=== PATIENT | male | born 1960 | race Caucasian/White ===

== ENCOUNTER 2020-08-20 21:24 | Emergency (ER) | payer MEDICARE, OTHER ==
[~2020-08-20] VITALS: Ht 170.2 cm; Wt 54.4 kg
[2020-08-20 21:41] VITALS: BP 117/80
--- NOTE | 2020-08-20 21:41 | NUR ---
ED Nurse Note: PT AMBULATED INTO ED FROM HOME CO GENERALIZED BODY PAIN D/T CURRENTLY DETOXING FROM [facility]. PT STATES PAIN IS 8/10. PT AAO X 4, AMBULATES WITH STEADY GAIT, NO ANXIETY NOTED. AWAITING ERMD AT BEDSIDE. AWAITING FURTHER ORDERS.
[2020-08-20] MEDS ORDERED: LORazepam Inj 2mg/ml 1ml IV ONE (22:00)
--- NOTE | 2020-08-20 22:00 | Emergency Room Report ---
History of Present Illness General Chief Complaint: Pain Source: Patient Present Illness HPI Disclaimer: Please note that this report is being documented using DRAGON technology. This can lead to erroneous entry secondary to incorrect interpretation by the dictating instrument. HPI: 59-year-old male history of heroin abuse presents for evaluation of tremors and restlessness. Patient states he completed inpatient detox program 3 days ago and transition to residential detox at [facility]. Unable to sleep over the past 3 days. He was receiving Valium and Klonopin and detox but was not given prescriptions. He feels restlessness, tremors in his extremities. Denies seizures. Denies chest pain or palpitations specifically but states he feels agitated from "withdrawal." Reports baseline cough that is unchanged. This is due to his smoking per patient. Denies fever, chills, nausea, vomiting, diarrhea, abdominal pain, skin rash. Denies other medical conditions or complaints at this time. He presents with care worker from [facility]. 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 EOMI. Cardiovascular: RRR. S1 and S2 normal. No murmur appreciated Resp: Normal work of breathing. No cough, wheezing or crackles appreciated Abdomen: Abdomen is soft, nondistended. Nontender Skin: Intact. No abrasions, laceration or rash over the exposed skin MSK: Normal tone and bulk. Moving all extremities. No obvious deformity. Neuro: Awake and alert. Mentating appropriately. No tremors. Purposeful movem ents. Medical Decision Making Diagnostic Impression: Primary Impression: Benzodiazepine withdrawal without complication ER Course Is a 59-year-old male presenting for evaluation of agitation and tremulousness. Differential includes was not limited to benzodiazepine withdrawal, heroin withdrawal, anxiety, depression, electrolyte abnormality, arrhythmia, ACS among others. EKG is nonischemic and has a normal rhythm. Patient has no signs of acute withdrawal. Labs within normal limits. Patient was unable to provide urine stating he urinated just prior to arriving to the ED. Likely anxiety and mild benzodiazepine withdrawal. Will give short course of as needed Ativan to use as night to help him sleep over the next few days. Follow-up with the remainder of his care through his outpatient rehabilitation program. Assistant Athletic Trainer is here to take him back to his facility. Instructed to return with new or worsening symptoms. He understands and agrees with this treatment plan. Laboratory Tests Test 08/20/20 22:05 White Blood Count 10.6 K/UL (4.8-10.8) Red Blood Count 4.38 M/UL (4.70-6.10) L Hemoglobin 13.1 G/DL (14.2-18.0) L Hematocrit 40.1 % (42.0-52.0) L Mean Corpuscular Volume 92 FL (80-99) Mean Corpuscular Hemoglobin 29.9 PG (27.0-31.0) Mean Corpuscular Hemoglobin Concent 32.6 G/DL (32.0-36.0) Red Cell Distribution Width 16.4 % (11.6-14.8) H Platelet Count 322 K/UL (150-450) Mean Platelet Volume 6.3 FL (6.5-10.1) L Neutrophils (%) (Auto) 62.0 % (45.0-75.0) Lymphocytes (%) (Auto) 30.5 % (20.0-45.0) Monocytes (%) (Auto) 5.1 % (1.0-10.0) Eosinophils (%) (Auto) 0.9 % (0.0-3.0) Basophils (%) (Auto) 1.5 % (0.0-2.0) Sodium Level 133 MMOL/L (136-145) L Potassium Level 4.3 MMOL/L (3.5-5.1) Chloride Level 104 MMOL/L (98-107) Carbon Dioxide Level 21 MMOL/L (21-32) Anion Gap 8 mmol/L (5-15) Blood Urea Nitrogen 32 mg/dL (7-18) H Creatinine 1.2 MG/DL (0.55-1.30) Estimated Glomerular Filtration Rate > 60 mL/min (>60) Glucose Level 115 MG/DL (74-106) H Calcium Level 10.5 MG/DL (8.5-10.1) H Total Bilirubin 0.3 MG/DL (0.2-1.0) Aspartate Amino Transferase (AST) 26 U/L (15-37) Alanine Aminotransferase (ALT) 20 U/L (12-78) Alkaline Phosphatase 163 U/L (46-116) H Troponin I 0.000 ng/mL (0.000-0.056) Total Protein 8.9 G/DL (6.4-8.2) H Albumin 3.6 G/DL (3.4-5.0) Globulin 5.3 g/dL Albumin/Globulin Ratio 0.7 (1.0-2.7) L Serum Alcohol < 3 mg/dL EKG Diagnostic Results Troponin ordered: Yes When was troponin ordered?: Aug 20, 2020 EKG Time: 22:04 Rate: normal Rhythm: NSR ST Segments: no acute changes Other Impression Sinus rhythm, normal axis, normal intervals, QTC 4 1 5 ms, no ST segment changes. Rhythm Strip Diag. Results Rhythm Strip Time: 22:04 EP Interpretation: yes Rate: 63 Rhythm: NSR, no PVC's, no ectopy Chest X-Ray Diagnostic Results Chest X-Ray Diagnostic Results : Chest X-Ray Ordered: Yes # of Views/Limited/Complete: 1 View Indication: Chest Pain EP Interpretation: Yes Interpretation: no consolidation, no effusion, no pneumothorax, no acute cardiopulmonary disease Impression: No acute disease Electronically Signed by: Electronically signed by Dr. Lexx Phillip MD Last Vital Signs Date Time Temp Pulse Resp B/P (MAP) Pulse Ox O2 Delivery O2 Flow Rate FiO2 08/20/20 21:31 98.4 71 18 117/80 (92) 95 Room Air Disposition: ASSISTED LIVING Condition: Stable Scripts Lorazepam* (ATIVAN*) 1 Mg Tablet 1 MG ORAL BEDTIME PRN for Agitation, #3 TAB Prov: Lexx Phillip MD 08/20/20 Lexx Phillip MD Aug 20, 2020 22:00
--- NOTE | 2020-08-20 22:00 | NUR ---
ED Nurse Note: ALL BLOOD WORK OBTAINED AND SENT TO LAB. PT STATES HE IS UNABLE TO PROVIDE UA AT THIS TIME.
--- NOTE | 2020-08-20 22:15 | NUR ---
ED Nurse Note: ALL MEDICATIONS ADMINISTERED, PT TOLERATED WELL NO SS OF DISTRESS NOTED. WILL CONTINUE TO MONITOR.
[2020-08-20 22:22] LABS: BASOPHILS % (AUTO) 1.5 % (0.0-2.0); EOSINOPHILS % (AUTO) 0.9 % (0.0-3.0); HEMATOCRIT 40.1 % (42.0-52.0); HEMOGLOBIN 13.1 G/DL (14.2-18.0); LYMPHOCYTES % (AUTO) 30.5 % (20.0-45.0); MEAN CORPUSCULAR VOLUME 92 FL (80-99); MONOCYTES % (AUTO) 5.1 % (1.0-10.0); PLATELET COUNT 322 K/UL (150-450); RED BLOOD COUNT 4.38 M/UL (4.70-6.10); RED CELL DISTRIBUTION WIDTH 16.4 % (11.6-14.8); WHITE BLOOD COUNT 10.6 K/UL (4.8-10.8)
[2020-08-20 22:34] LABS: ANION GAP 8 mmol/L (5-15); BLOOD UREA NITROGEN 32 mg/dL (7-18); CALCIUM 10.5 MG/DL (8.5-10.1); CARBON DIOXIDE 21 MMOL/L (21-32); CHLORIDE 104 MMOL/L (98-107); CREATININE 1.2 MG/DL (0.55-1.30); POTASSIUM 4.3 MMOL/L (3.5-5.1); SODIUM 133 MMOL/L (136-145)
[2020-08-20 22:39] LABS: ALANINE AMINOTRANSFERASE 20 U/L (12-78); ALBUMIN 3.6 G/DL (3.4-5.0); ALBUMIN/GLOBULIN RATIO 0.7 (1.0-2.7); ALKALINE PHOSPHATASE 163 U/L (46-116); ASPARTATE AMINO TRANSFERASE 26 U/L (15-37); BILIRUBIN,TOTAL 0.3 MG/DL (0.2-1.0)
--- NOTE | 2020-08-20 22:49 | NUR ---
ED Nurse Note: Pt prompted for second time for UA, pt states that he still cannot provide UA at this time. ERMD notified.
[2020-08-20] MEDS ORDERED: ATIVAN1 MG ORAL (22:53)
[2020-08-20 22:57] VITALS: BP 125/83
--- NOTE | 2020-08-20 22:57 | NUR ---
ER DISCHARGE NOTE: Patient is cleared to be discharged HOME per ERMD, pt is aox4, 98% on room air, with stable vital signs. pt was given dc and prescription instructions, pt was able to verbalize understanding, pt id band removed without complications. pt is able to ambulate with steady gait. pt took all belongings.
--- NOTE | 2020-08-21 15:25 | Cardiology Report ---
APPROVED REPORT EKG Measurement Heart [id number] <Conclusion> Normal sinus rhythm Normal ECG
--- NOTE | 2020-08-21 16:39 | Diagnostic Imaging Report ---
Indication: Chest pain Technique: XRAY Chest 1v Comparison: None Findings: Hyperinflation and slight flattening of the diaphragms. No focal consolidation. No pleural effusion or pneumothorax. Heart size is within normal limits. No acute osseous abnormality. Impression: No radiographic evidence of acute cardiopulmonary disease. Suggested subtle COPD changes.
== END 2020-08-20 22:57 | disposition home or self-care (01) ==
LOC: EMR 22:08
DX: F19.239 Other psychoactive substance dependence with withdrawal, unspecified (principal); F11.11 Opioid abuse, in remission
CPT/HCPCS: 36415; 71045; 80053; 84484; 85025; 93005; 99283; G0480

== ENCOUNTER 2020-08-21 08:23 | Emergency (ER) | payer MEDICARE, OTHER ==
[~2020-08-21] VITALS: Ht 170.2 cm; Wt 54.4 kg
[~2020-08-21 08:23] MED LIST: ATIVAN1 MG ORAL
[2020-08-21 08:27] VITALS: BP 115/80
--- NOTE | 2020-08-21 08:37 | NUR ---
ED Nurse Note: Patient came in for re evaluation of benzodiazepine withdrawal. Pt reports that he was seen here yesterday and was prescribed with ativan but has not been filled yet. Pt is c/o generalized body pain. AAO x4, follows commands. No respiratory distress.
--- NOTE | 2020-08-21 08:42 | Emergency Room Report ---
History of Present Illness General Chief Complaint: Substance Abuse Source: Patient Present Illness HPI 59-year-old male here for benzodiazepine withdrawal. The patient takes Klonopin and Valium regularly. Patient was here last night for the same complaints. Patient says he has gone without his benzos for a few days and is beginning to feel "agitated." He was here last night and had an extensive work-up including chest x-ray and lab work that was all unremarkable. He was given a prescription for Ativan. However he has been unable to fill it. He is here "because I need a dose." Denies headache, vision change, fevers, chills, chest pain, palpitation, shortness of breath, back pain, abdominal pain, nausea vomiting, diarrhea, dysuria. 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 COVID-19 Screening: Negative COVID-19 COVID-19 Testing Source: [facility] Nursing Documentation-[facility] Past Medical History: No History, Except For History Of Psychiatric Problem: Yes - substance abuse Review of Systems All Other Systems: negative except mentioned in HPI Physical Exam Vital Signs Date Time Temp Pulse Resp B/P (MAP) Pulse Ox O2 Delivery O2 Flow Rate FiO2 08/21/20 08:27 97.9 78 20 115/80 (92) 99 08/21/20 08:27 Room Air Sp02 EP Interpretation: reviewed, normal General Appearance: no apparent distress, alert, non-toxic Head: normocephalic, atraumatic Eyes: bilateral eye normal inspection, bilateral eye PERRL ENT: hearing grossly normal, normal pharynx, no angioedema, normal voice Neck: full range of motion, supple/symm/no masses Respiratory: chest non-tender, lungs clear, normal breath sounds, speaking full sentences Cardiovascular #1: regular rate, rhythm, no edema Cardiovascular #2: 2+ carotid (R), 2+ carotid (L), 2+ radial (R), 2+ radial (L), 2+ dorsalis pedis (R), 2+ dorsalis pedis (L) Gastrointestinal: normal bowel sounds, non tender, soft, non-distended, no guarding, no rebound Rectal: deferred Genitourinary: normal inspection, no CVA tenderness Musculoskeletal: back normal, normal range of motion, gait/station normal, non- tender Neurologic: alert, motor strength/tone normal, oriented x3, sensory intact, responsive, speech normal Psychiatric: judgement/insight normal, memory normal, mood/affect normal, no suicidal/homicidal ideation Lymphatic: no adenopathy Medical Decision Making Diagnostic Impression: Primary Impression: Benzodiazepine withdrawal without complication ER Course 59-year-old male here because he is cleaning benzodiazepine withdrawal symptoms. Patient had no tremulousness and had normal vital signs in the emergency department. He was in no acute distress whatsoever and had a normal physical examination. The patient was here last night approximately 10 hours prior to this visit. He had an extensive work-up at that time. There is no indication for any new lab work or imaging at this time. He was given a dose of Ativan and a dose of Librium. He still has the prescription given to him from last night. Was told to fill this prescription. Told to come back to the emergency department with any altered mental status, focal numbness or weakness, palpitations, worsening tremulousness. He expressed understanding and was discharged. Last Vital Signs Date Time Temp Pulse Resp B/P (MAP) Pulse Ox O2 Delivery O2 Flow Rate FiO2 08/21/20 08:27 97.9 78 20 115/80 99 Room Air Disposition: HOME, SELF-CARE Condition: Stable Referrals: [facility] + [facility] Psych ER - Peds ER - [facility] Intake Hotline - [facility] - [facility] Patient Instructions: Substance Use Disorder Jc Arnold M.D. Aug 21, 2020 08:42
[2020-08-21] MEDS ORDERED: LORazepam 1mg tab ORAL ONE (08:45)
[2020-08-21] MEDS ORDERED: chlordiazePOXIDE 25mg Cap ORAL ONE (08:45)
[2020-08-21 08:55] VITALS: BP 122/75
--- NOTE | 2020-08-21 08:55 | NUR ---
ER DISCHARGE NOTE: Patient is cleared to be discharged per ERMD, pt is aox4, on room air, with stable vital signs. pt was given dc instructions, pt was able to verbalize understanding, pt id band removed. pt is able to ambulate with steady gait. pt took all belongings.
== END 2020-08-21 08:55 | disposition home or self-care (01) ==
LOC: EMR 08:46
DX: F13.239 Sedative, hypnotic or anxiolytic dependence with withdrawal, unspecified (principal)
CPT/HCPCS: 99282